=== PATIENT | male | born 1960 | race Caucasian/White ===

== ENCOUNTER → 2019-04-04 | Outpatient (CLI) | payer OTHER ==
--- NOTE | 2019-04-04 12:56 | XR ---
Right knee HISTORY: Trauma and pain 3 views of the right knee There is a nondisplaced fracture of the patella. There is suprapatellar joint effusion. No dislocatio n. Alignment and bone mineralization are maintained, joint spaces are within normal limits. IMPRESSION: Patellar fracture could be confirmed with sunrise view.
--- NOTE | 2019-04-04 12:58 | XR ---
Left wrist HISTORY: Trauma and pain 4 views of the left wrist Arthropathy is present within the wrist. There is soft tissue swelling present. Alignment and bone mi neralization are maintained. Small ossific density dorsal to the lunate appears well-corticated and i s not felt likely to be acute. There are geodes present within the carpal bones. Spurring present at the distal radioulnar joint. IMPRESSION: No acute fracture or dislocation.
--- NOTE | 2019-04-04 13:51 | XR ---
[place] view right knee history: Trauma and pain, abnormal x-ray Cortical lucency and irregularity is noted at the lateral aspect of the patella which confirms patell ar fracture. IMPRESSION: Lateral patellar fracture.
== END ==
LOC: RADXRMAIN 12:25
PROVIDERS: ATTEND Emergency Medicine
DX: S82.001A Unspecified fracture of right patella, initial encounter for closed fracture (principal); S63.502A Unspecified sprain of left wrist, initial encounter

== ENCOUNTER → 2024-01-31 | Day surgery (SDC) | payer BC ==
[~2024-01-31] MED LIST: PROPOFOL 10 MG/ML 20 ML VIAL IV ONE
[2024-01-31] MEDS: LACTATED RINGERS 1,000 ML IV SCH (07:52)
[2024-01-31 08:03] VITALS: TEMP 97
--- NOTE | 2024-01-31 08:39 | P.PCN ---
Date of Procedure: 01/31/24 Procedure(s) Performed: BRIEF HISTORY: Patient is a 63-year-old pleasant white male scheduled for an elective colonoscopy as a part of screening for colon cancer. PROCEDURE PERFORMED: Colonoscopy. PREOPERATIVE DIAGNOSIS: Screening for colon cancer. IV sedation per Anesthesia. PROCEDURE: After informed consent was obtained, the patient, was brought into the endoscopy unit. IV sedation was administered by Anesthesia under continuous monitoring. Digital rectal examination was normal. Initially the Olympus CF-160 flexible video colonoscope was then inserted in the rectum, gradually advanced into the cecum without any difficulty. Careful examination was performed as the scope was gradually being withdrawn. Ileocecal valve and the appendiceal orifice were visualized and appeared normal. Prep was poor and several areas of the colon.. Mucosa of the cecum, ascending colon, transverse colon, descending colon, sigmoid colon, and rectum appeared normal.centimeters in the sigmoid colon and descending colon could not be adequately visualized because of thick solid stool in this area that could not be irrigated. Retroflexion was performed in the rectum and no lesions were seen. The patient tolerated the procedure well. IMPRESSION: Normal-appearing colon from rectum to cecum no evidence of c olorectal neoplasia. RECOMMENDATIONS: Findings of this examination were discussed with the patient as well as his family. He was advised to fhave a repeat screening colonoscopy in 5 years because of the poor prep
[2024-01-31 09:24] VITALS: BP 113/67; PULSE 51; RESP 16
== END ==
LOC: ORWHC2ENDO 07:26
PROVIDERS: ATTEND Internal Medicine Gastroenterology
DX: Z12.11 Encounter for screening for malignant neoplasm of colon (principal); F17.210 Nicotine dependence, cigarettes, uncomplicated; Z98.890 Other specified postprocedural states
CPT/HCPCS: 45378; J2704